=== PATIENT | male | born 1995 | race Caucasian/White ===

== ENCOUNTER 2018-08-31 01:50 | Emergency (ER) | payer OTHER ==
[~2018-08-31] VITALS: Ht 177.8 cm; Wt 76.7 kg
[~2018-08-31 01:50] MED LIST: IBUP-1842 PO
[2018-08-31 01:55] VITALS: BP 132/82
--- NOTE | 2018-08-31 01:55 | NUR ---
PT AMBULATED TO BED #11
--- NOTE | 2018-08-31 01:55 | NUR ---
PT C/O P/S FALL. PT STATED HE FELL SLIPPING ON SOME WATER. PT LOC FOR ABOUT 10 SEC. PT LOST HIS FRONT TOOTH, HAS A LAC IN THE MIDDLE OF TONGUE, HAS A SMALL LAC ABOVE THE LIP. PT HAS SOME FACIAL SWELLING. PT HAS SOME N/V. PT HAS A SALDANA PT A/OX4. MOM AT BEDSIDE. NKA AND NO PREVIOUS MEDICAL HX. PT MOM STATED HE TOOK SOME IBUPROFEN AROUND 0030. ER MD MADE AWARE OF STATUS, SAFETY PRECAUTIONS IN PLACE, BED RAILS UP X 1.
[2018-08-31] MEDS ORDERED: KETOROLAC 60 MG/2 ML VIAL IM ONE (02:15)
--- NOTE | 2018-08-31 02:30 | NUR ---
PT TO CT VIA WHEELCHAIR BY TECH.
[2018-08-31] MEDS ORDERED: AMOXIL/CLAVULANATE 500/125 MG 1 TAB PO ONE (03:50)
[2018-08-31] MEDS ORDERED: AMOXIL/CLAVULANATE 875/125 MG 1 TAB PO ONE (04:10)
[2018-08-31] MEDS ORDERED: AMOXIL/CLAVULANATE 875/125 MG 1 TAB ONE (04:18)
[2018-08-31 05:13] VITALS: BP 132/82
--- NOTE | 2018-08-31 05:13 | NUR ---
Patient discharged with v/s stable. Written and verbal after care instructions given and explained. Patient alert, oriented and verbalized understanding of instructions. Ambulatory with steady gait. All questions addressed prior to discharge. ID band removed. Patient advised to follow up with PMD. Rx of MOTRIN, TRAMADOL, AUGMENTIN WAS given. Patient educated on indication of medication including possible reaction and side effects. Opportunity to ask questions provided and answered.
== END 2018-08-31 05:13 | disposition home or self-care (01) ==
LOC: MED 01:50
DX: S02.69XA Fracture of mandible of other specified site, initial encounter for closed fracture (principal); S01.512A Laceration without foreign body of oral cavity, initial encounter; S01.21XA Laceration without foreign body of nose, initial encounter; K08.109 Complete loss of teeth, unspecified cause, unspecified class; R11.10 Vomiting, unspecified; R55 Syncope and collapse; Z79.899 Other long term (current) drug therapy; W01.0XXA Fall on same level from slipping, tripping and stumbling without subsequent striking against object, initial encounter; Y93.02 Activity, running; Y92.89 Other specified places as the place of occurrence of the external cause; Y99.8 Other external cause status
CPT/HCPCS: 12011; 70450; 70486; 72125; 90471; 90715; 96372; 99284; J1885